=== PATIENT | male | born 1950 | race Caucasian/White ===

== ENCOUNTER 2016-11-10 16:36 | Inpatient (IN) | payer MEDICARE, OTHER ==
[~2016-11-10] VITALS: Ht 177.8 cm; Wt 69.1 kg
[~2016-11-10 16:36] MED LIST: ACET-1757 PO; AMIO200T42 PO; ASPI-496 PO; CARV-39 PO; CEFD300C2 PO; CLON0.1T PO; GABA300C10 PO; HYDR25TA6 PO; LEVO750T26 PO; LISI-170 PO; PRED10TA14 PO
[2016-11-10] MEDS ORDERED: METOPROLOL 1 MG/ML, 5ML IVPush ONE (16:49)
[2016-11-10] MEDS ORDERED: ACETAMINOPHEN 500 MG TABLET ONE (16:56)
[2016-11-10] MEDS ORDERED: METOPROLOL 1 MG/ML, 5ML ONE (16:56)
[2016-11-10] MEDS ORDERED: AMIODARONE 150 MG in DEXTROSE 5% 100 ML IV ONE (17:00)
[2016-11-10] MEDS ORDERED: PIPERACILLIN/TAZO/PMX 3.375GM 50 ML IVPB ONE (17:00)
[2016-11-10] MEDS ORDERED: SODIUM CHLORIDE 0.9% 1,000ML IVBOLUS ONE (17:00)
[2016-11-10] MEDS ORDERED: FILTER 0.22 MICRON FOR AMIODARONE IV PRN (17:00)
[2016-11-10] MEDS ORDERED: AMIODARONE 900 MG in DEXTROSE 5% 482 ML IV PRN ×2 (17:00→18:00)
[2016-11-10] MEDS ORDERED: SODIUM CHLORIDE FLUSH 10ML SYR IVF ONE (17:00)
[2016-11-10] MEDS ORDERED: ACETAMINOPHEN 325 MG TABLET PO ONE (17:00)
[2016-11-10] MEDS ORDERED: ONDANSETRON 2MG/ML, 2ML IVP PRN (17:30)
[2016-11-10] MEDS ORDERED: MORPHINE SULFATE 4 MG/ML, 1ML IVPush PRN (17:30)
[2016-11-10] MEDS ORDERED: LABETALOL 5MG/ML, 20ML IV PRN (17:30)
[2016-11-10] MEDS ORDERED: POLYETHYLENE GLYCOL 17 GM PACKET PO PRN (17:30)
[2016-11-10] MEDS ORDERED: ACETAMINOPHEN 325 MG TABLET PO PRN (17:30)
[2016-11-10] MEDS ORDERED: VANCOMYCIN PER PHARMACY MC PRN (17:30)
[2016-11-10] MEDS ORDERED: PIPERACILLIN/TAZO/PMX 3.375GM 50 ML ONE (17:40)
[2016-11-10 17:51] LABS: HEMOGLOBIN 16.8 g/dL (13.7-18.0)
[2016-11-10 17:59] LABS: BLOOD UREA NITROGEN 14 mg/dL (7-18)
[2016-11-10] MEDS ORDERED: FILTER 0.22 MICRON IV PRN (18:00)
[2016-11-10] MEDS ORDERED: AMIODARONE 150 MG in DEXTROSE 5% 100 ML IVPB ONE (18:00)
[2016-11-10] MEDS ORDERED: TAMSULOSIN 0.4 MG CAP.ER.24H PO ONE (18:00)
[2016-11-10 18:02] LABS: ASPARTATE AMINO TRANSFERASE 84 U/L (15-37)
[2016-11-10 18:15] LABS: IS PT STATUS REG ER OR PRE ER? YES
[2016-11-10 18:31] LABS: ABG COLLECTION SITE RIGHT RADIAL; COLLATERAL CIRCULATION TESTING NORMAL
[2016-11-10] MEDS ORDERED: PHARMACOKINETIC MONITORING MC PRN (19:30)
[2016-11-10] MEDS ORDERED: PHARMACOKINETIC CONSULTATION MC ONE (19:30)
[2016-11-10] MEDS ORDERED: VANCOMYCIN PMX 1GM/200ML 200 ML IV ONE (20:30)
[2016-11-10] MEDS: SODIUM CHLORIDE FLUSH 10ML SYR IVF SCH (20:34)
[2016-11-10] MEDS: SODIUM CHLORIDE 0.9% 1,000 ML IV SCH (20:34)
[2016-11-10] MEDS: ALBUTEROL/IPRATROPIUM 2.5MG/0.5MG, 3 ML NPPB PRN (20:36)
[2016-11-10] MEDS: GABAPENTIN 400 MG CAPSULE PO SCH (21:46)
[2016-11-10] MEDS: PIPERACILLIN/TAZO/PMX 4.5GM 100 ML IV SCH (23:36)
[2016-11-11 00:20] LABS: IS PT STATUS REG ER OR PRE ER? NO
[2016-11-11] MEDS: ALBUTEROL/IPRATROPIUM 2.5MG/0.5MG, 3 ML NPPB PRN ×2 (00:59→03:49)
[2016-11-11 04:44] LABS: HEMOGLOBIN 15.5 g/dL (13.7-18.0)
[2016-11-11 04:54] LABS: BLOOD UREA NITROGEN 16 mg/dL (7-18)
[2016-11-11 04:58] LABS: ASPARTATE AMINO TRANSFERASE 46 U/L (15-37)
[2016-11-11] MEDS: PIPERACILLIN/TAZO/PMX 4.5GM 100 ML IV SCH ×4 (05:14→23:45)
[2016-11-11] MEDS: LEVOTHYROXINE 50 MCG TABLET PO SCH (05:14)
[2016-11-11] MEDS: ASPIRIN 325 MG TABLET EC PO SCH (05:14)
[2016-11-11] MEDS: METOPROLOL 1 MG/ML, 5ML IVPush SCH ×3 (05:15→19:38)
[2016-11-11] MEDS: SODIUM CHLORIDE 0.9% 1,000 ML IV SCH ×2 (06:48→15:27)
[2016-11-11] MEDS: ALBUTEROL/IPRATROPIUM 2.5MG/0.5MG, 3 ML NPPB SCH ×4 (07:00→20:22)
[2016-11-11 07:07] LABS: IS PT STATUS REG ER OR PRE ER? NO
[2016-11-11] MEDS ORDERED: PANTOPRAZOLE 40 MG IV IVP SCH (07:30)
[2016-11-11] MEDS ORDERED: AMIODARONE 150 MG in DEXTROSE 5% 100 ML IV ONE (07:30)
[2016-11-11] MEDS: SENNA/DOCUSATE TABLET PO SCH (09:00)
[2016-11-11] MEDS: SODIUM CHLORIDE FLUSH 10ML SYR IVF SCH ×2 (09:51→20:56)
[2016-11-11] MEDS: GABAPENTIN 400 MG CAPSULE PO SCH ×3 (09:51→21:07)
[2016-11-11] MEDS ORDERED: DIGOXIN 0.25 MG/ML, 2ML IVPush ONE ×2 (10:30→21:00)
[2016-11-11 13:11] LABS: RAPID INFLUENZA A Negative (Negative); RAPID INFLUENZA B Negative (Negative)
[2016-11-11] MEDS: VANCOMYCIN 1,200 MG in SODIUM CHLORIDE 0.9% 250 ML IV SCH (17:29)
[2016-11-11] MEDS ORDERED: DIGOXIN 0.25 MG/ML, 2ML ONE (20:52)
[2016-11-11] MEDS ORDERED: AMIODARONE 150 MG in DEXTROSE 5% 100 ML IV STA (22:04)
[2016-11-11 22:08] LABS: PATH.CAST-FLAG NOT PRESENT; SPERM-FLAG NOT PRESENT; SRC-FLAG NOT PRESENT; XTAL-FLAG NOT PRESENT; YLC-FLAG NOT PRESENT
[2016-11-11] MEDS ORDERED: FUROSEMIDE 40 MG/4 ML ONE (22:59)
[2016-11-11] MEDS ORDERED: FUROSEMIDE 40 MG/4 ML IV ONE (23:00)
[2016-11-12] MEDS ORDERED: DILTIAZEM 5 MG/ML, 5ML IVPush ONE
[2016-11-12] MEDS: DILTIAZEM 125 MG in SODIUM CHLORIDE 0.9% 100 ML IV PRN ×2 (01:04→01:19)
[2016-11-12] MEDS: OXYcodone IR 5MG TABLET PO PRN (01:28)
[2016-11-12] MEDS ORDERED: DIGOXIN 0.25 MG/ML, 2ML IVPush ONE (03:00)
[2016-11-12] MEDS: PIPERACILLIN/TAZO/PMX 4.5GM 100 ML IV SCH ×2 (04:56→11:03)
[2016-11-12 05:01] LABS: HEMOGLOBIN 14.1 g/dL (13.7-18.0)
[2016-11-12 05:12] LABS: BLOOD UREA NITROGEN 9 mg/dL (7-18)
[2016-11-12] MEDS: LEVOTHYROXINE 50 MCG TABLET PO SCH (05:53)
[2016-11-12] MEDS: ASPIRIN 325 MG TABLET EC PO SCH (05:53)
[2016-11-12] MEDS: ALBUTEROL/IPRATROPIUM 2.5MG/0.5MG, 3 ML NPPB SCH ×3 (07:00→14:31)
[2016-11-12] MEDS ORDERED: POTASSIUM CHLORIDE 20 MEQ TAB.ER.PRT PO ONE (07:30)
[2016-11-12] MEDS: SODIUM CHLORIDE FLUSH 10ML SYR IVF SCH ×2 (08:29→20:55)
[2016-11-12] MEDS: GABAPENTIN 400 MG CAPSULE PO SCH ×3 (08:29→20:55)
[2016-11-12] MEDS: ASPIRIN 81 MG TABLET EC PO SCH (08:29)
[2016-11-12] MEDS ORDERED: DILTIAZEM 125 MG in SODIUM CHLORIDE 0.9% 100 ML IV SCH (08:30)
[2016-11-12] MEDS: SENNA/DOCUSATE TABLET PO SCH (08:31)
[2016-11-12] MEDS ORDERED: DILTIAZEM 60 MG CAP.ER.12H PO SCH (09:00)
[2016-11-12] MEDS ORDERED: DILTIAZEM 5 MG/ML, 5ML IVPush PRN (09:30)
[2016-11-12] MEDS: CARVEDILOL 25 MG TABLET PO SCH ×2 (09:41→20:55)
[2016-11-12] MEDS: AMIODARONE 200 MG TABLET PO SCH (09:42)
[2016-11-12] MEDS: VANCOMYCIN 1,200 MG in SODIUM CHLORIDE 0.9% 250 ML IV SCH (12:44)
[2016-11-12 16:30] VITALS: BP 115/78
[2016-11-12] MEDS: LEVOFLOXACIN/PMX 750MG/150ML 150 ML IV SCH (17:50)
[2016-11-12 19:00] VITALS: BP 126/71
[2016-11-13 01:35] VITALS: BP 131/82
[2016-11-13] MEDS: LEVOTHYROXINE 50 MCG TABLET PO SCH (06:11)
[2016-11-13 06:36] VITALS: BP 151/85
[2016-11-13] MEDS: ALBUTEROL/IPRATROPIUM 2.5MG/0.5MG, 3 ML NPPB SCH ×4 (07:00→19:38)
[2016-11-13] MEDS: SENNA/DOCUSATE TABLET PO SCH (09:00)
[2016-11-13] MEDS: CARVEDILOL 25 MG TABLET PO SCH ×2 (09:04→20:58)
[2016-11-13] MEDS: ASPIRIN 81 MG TABLET EC PO SCH (09:04)
[2016-11-13] MEDS: GABAPENTIN 400 MG CAPSULE PO SCH ×3 (09:04→20:58)
[2016-11-13] MEDS: AMIODARONE 200 MG TABLET PO SCH (09:04)
[2016-11-13] MEDS: SODIUM CHLORIDE FLUSH 10ML SYR IVF SCH ×2 (09:05→21:02)
[2016-11-13 09:15] LABS: HEMOGLOBIN 15.3 g/dL (13.7-18.0)
[2016-11-13 09:24] LABS: BLOOD UREA NITROGEN 11 mg/dL (7-18)
[2016-11-13 14:29] VITALS: BP 123/77
[2016-11-13] MEDS: OXYcodone IR 5MG TABLET PO PRN (16:02)
[2016-11-13] MEDS: LEVOFLOXACIN/PMX 750MG/150ML 150 ML IV SCH (17:35)
[2016-11-13] MEDS ORDERED: WARFARIN 5 MG TABLET PO-COUM ONE (18:00)
[2016-11-13 18:31] VITALS: BP 160/85
[2016-11-14 01:12] VITALS: BP 121/70
[2016-11-14] MEDS: LEVOTHYROXINE 50 MCG TABLET PO SCH (06:07)
[2016-11-14 06:45] VITALS: BP 160/93
[2016-11-14] MEDS: ALBUTEROL/IPRATROPIUM 2.5MG/0.5MG, 3 ML NPPB SCH ×4 (07:20→21:22)
[2016-11-14] MEDS: SENNA/DOCUSATE TABLET PO SCH (09:00)
[2016-11-14] MEDS: ASPIRIN 81 MG TABLET EC PO SCH (09:02)
[2016-11-14] MEDS: SODIUM CHLORIDE FLUSH 10ML SYR IVF SCH ×2 (09:02→21:13)
[2016-11-14] MEDS: GABAPENTIN 400 MG CAPSULE PO SCH ×3 (09:02→21:12)
[2016-11-14] MEDS: AMIODARONE 200 MG TABLET PO SCH (09:03)
[2016-11-14] MEDS: CARVEDILOL 25 MG TABLET PO SCH ×2 (09:03→21:12)
[2016-11-14 12:51] VITALS: BP 145/96
[2016-11-14] MEDS: LEVOFLOXACIN/PMX 750MG/150ML 150 ML IV SCH (17:03)
[2016-11-14] MEDS ORDERED: WARFARIN 3 MG TABLET PO-COUM ONE (18:00)
[2016-11-14 18:31] VITALS: BP 147/88
[2016-11-15 01:33] VITALS: BP 166/89
[2016-11-15 03:59] VITALS: BP 155/87
[2016-11-15] MEDS: LEVOTHYROXINE 50 MCG TABLET PO SCH (05:45)
[2016-11-15 07:00] VITALS: BP 133/86
[2016-11-15] MEDS: ALBUTEROL/IPRATROPIUM 2.5MG/0.5MG, 3 ML NPPB SCH ×4 (08:00→19:36)
[2016-11-15] MEDS: SODIUM CHLORIDE FLUSH 10ML SYR IVF SCH ×2 (09:00→20:51)
[2016-11-15] MEDS: SENNA/DOCUSATE TABLET PO SCH (09:46)
[2016-11-15] MEDS: GABAPENTIN 400 MG CAPSULE PO SCH ×3 (09:46→20:51)
[2016-11-15] MEDS: CARVEDILOL 25 MG TABLET PO SCH ×2 (09:47→20:51)
[2016-11-15] MEDS: ASPIRIN 81 MG TABLET EC PO SCH (09:47)
[2016-11-15] MEDS: AMIODARONE 200 MG TABLET PO SCH (09:47)
[2016-11-15 14:19] VITALS: BP 129/82
[2016-11-15] MEDS ORDERED: WARF6TAB7 PO (16:17)
[2016-11-15] MEDS: LEVOFLOXACIN/PMX 750MG/150ML 150 ML IV SCH (17:54)
[2016-11-15] MEDS ORDERED: WARFARIN 3 MG TABLET PO-COUM ONE (18:00)
[2016-11-15 18:25] VITALS: BP 165/85
[2016-11-16 01:36] VITALS: BP 121/82
[2016-11-16] MEDS: OXYcodone IR 5MG TABLET PO PRN (04:28)
[2016-11-16] MEDS: LEVOTHYROXINE 50 MCG TABLET PO SCH (04:28)
[2016-11-16 07:03] VITALS: BP 151/106
[2016-11-16] MEDS: ALBUTEROL/IPRATROPIUM 2.5MG/0.5MG, 3 ML NPPB SCH ×3 (07:20→14:30)
[2016-11-16] MEDS: SODIUM CHLORIDE FLUSH 10ML SYR IVF SCH (09:00)
[2016-11-16] MEDS: SENNA/DOCUSATE TABLET PO SCH (10:04)
[2016-11-16] MEDS: AMIODARONE 200 MG TABLET PO SCH (10:04)
[2016-11-16] MEDS: CARVEDILOL 25 MG TABLET PO SCH (10:04)
[2016-11-16] MEDS: GABAPENTIN 400 MG CAPSULE PO SCH (10:04)
[2016-11-16] MEDS: ASPIRIN 81 MG TABLET EC PO SCH (10:04)
[2016-11-16] MEDS ORDERED: DIGO250T PO (11:54)
[2016-11-16] MEDS ORDERED: DIGOXIN 0.25 MG/ML, 2ML IVPush ONE (12:00)
[2016-11-16] MEDS ORDERED: WARF5TAB7 PO (15:27)
[2016-11-16] MEDS ORDERED: WARFARIN 5 MG TABLET PO-COUM ONE (18:00)
== END 2016-11-16 16:05 | DRG 871 ==
LOC: ED 17:29 → EDIP 17:30 → ED 18:13 → CCU 18:39 → ICU 11-12 15:58 → 5SO 11-12 22:56
PROVIDERS: ADMIT Internal Medicine; ATTEND Internal Medicine
DX: A41.9 Sepsis, unspecified organism (principal); J96.20 Acute and chronic respiratory failure, unspecified whether with hypoxia or hypercapnia; J44.1 Chronic obstructive pulmonary disease with (acute) exacerbation; J44.0 Chronic obstructive pulmonary disease with (acute) lower respiratory infection; I48.91 Unspecified atrial fibrillation; E03.9 Hypothyroidism, unspecified; E55.9 Vitamin D deficiency, unspecified; E78.00 Pure hypercholesterolemia, unspecified; I48.2 Chronic atrial fibrillation; N40.0 Benign prostatic hyperplasia without lower urinary tract symptoms; E78.5 Hyperlipidemia, unspecified; G62.9 Polyneuropathy, unspecified; I10 Essential (primary) hypertension; I25.10 Atherosclerotic heart disease of native coronary artery without angina pectoris; I73.9 Peripheral vascular disease, unspecified; Z79.01 Long term (current) use of anticoagulants; Z79.82 Long term (current) use of aspirin; Z82.3 Family history of stroke; Z82.49 Family history of ischemic heart disease and other diseases of the circulatory system; Z99.81 Dependence on supplemental oxygen; Z87.01 Personal history of pneumonia (recurrent); Z86.718 Personal history of other venous thrombosis and embolism; Z87.891 Personal history of nicotine dependence; Z95.2 Presence of prosthetic heart valve; Z95.3 Presence of xenogenic heart valve
CPT/HCPCS: 36415; 36600; 71010; 80048; 80053; 80162; 81001; 82803; 83605; 83735; 84145; 84439; 84443; 84484; 85025; 85610; 87040; 87070; 87077; 87081; 87205; 87324; 87400; 93005; 93970; 94640; 96365; 96368; 96375; J1940; J1956; J2405; J2543; J3370; J7620; C9113; J0282; J1160; J7030; J7050; J7060

== ENCOUNTER 2017-01-22 13:26 | Inpatient (IN) | payer MEDICARE, OTHER ==
[~2017-01-22] VITALS: Ht 177.8 cm; Wt 55.5 kg
[~2017-01-22 13:26] MED LIST changes: -CEFD300C2 PO; +CEFD300C37 PO; +DIGO250T PO; +ETOMIDATE 40 MG/20 ML ONE; +PROPOFOL 10 MG/ML, 20ML ONE; +SUCCINYLCHOLINE 20 MG/ML, 10ML ONE; +WARF5TAB7 PO; +WARF6TAB7 PO
[2017-01-22] MEDS ORDERED: DILTIAZEM 5 MG/ML, 5ML ONE (13:31)
[2017-01-22] MEDS ORDERED: DILTIAZEM 125 MG in DEXTROSE 5% 100 ML IV SCH (13:39)
[2017-01-22] MEDS ORDERED: PROPOFOL 100 ML IV PRN (13:39)
[2017-01-22] MEDS ORDERED: methylPREDNISolone SOD SUCC 125 MG/2 ML ONE (13:47)
[2017-01-22] MEDS ORDERED: PROPOFOL 100 ML IV ONE (13:47)
[2017-01-22] MEDS ORDERED: DILTIAZEM 5 MG/ML, 5ML IV ONE (14:00)
[2017-01-22] MEDS ORDERED: SUCCINYLCHOLINE 20 MG/ML, 10ML IVPush ONE (14:00)
[2017-01-22] MEDS ORDERED: methylPREDNISolone SOD SUCC 125 MG/2 ML IVP ONE (14:00)
[2017-01-22] MEDS ORDERED: SODIUM CHLORIDE FLUSH 10ML SYR IVF ONE (14:00)
[2017-01-22] MEDS ORDERED: ETOMIDATE 40 MG/20 ML IVPush ONE (14:00)
[2017-01-22 14:25] LABS: ASPARTATE AMINO TRANSFERASE 26 U/L (15-37); BLOOD UREA NITROGEN 13 mg/dL (7-18)
[2017-01-22 14:28] LABS: ABG COLLECTION SITE RIGHT RADIAL; COLLATERAL CIRCULATION TESTING NORMAL
[2017-01-22] MEDS ORDERED: LEVOFLOXACIN/PMX 750MG/150ML 150 ML IVPB ONE (14:30)
[2017-01-22] MEDS ORDERED: AMIODARONE 900 MG in DEXTROSE 5% 500 ML IV PRN (14:30)
[2017-01-22] MEDS ORDERED: AMIODARONE 150 MG in DEXTROSE 5% 100 ML IV ONE (14:30)
[2017-01-22] MEDS ORDERED: SODIUM CHLORIDE 0.9% 1,000ML IVBOLUS ONE ×3 (14:30→16:30)
[2017-01-22] MEDS ORDERED: SODIUM CHLORIDE 0.9% 1,000 ML IV ONE (14:53)
[2017-01-22] MEDS ORDERED: LEVOFLOXACIN/PMX 750MG/150ML 150 ML ONE (14:59)
[2017-01-22] MEDS ORDERED: FILTER 0.22 MICRON IV ONE (15:00)
[2017-01-22] MEDS ORDERED: SODIUM CHLORIDE FLUSH 10ML SYR IVF PRN (15:00)
[2017-01-22] MEDS ORDERED: POLYETHYLENE GLYCOL 17 GM PACKET PO PRN (16:00)
[2017-01-22] MEDS ORDERED: LABETALOL 5MG/ML, 20ML IVPush PRN (16:00)
[2017-01-22] MEDS ORDERED: FILTER 0.22 MICRON (AMIODARONE) IV PRN (16:00)
[2017-01-22] MEDS ORDERED: ONDANSETRON 2MG/ML, 2ML IVPush PRN (16:00)
[2017-01-22] MEDS ORDERED: LORazepam 2 MG/ML, 1ML IVPush PRN (16:00)
[2017-01-22] MEDS ORDERED: VANCOMYCIN PER PHARMACY MC PRN (16:00)
[2017-01-22 16:10] LABS: IS PT STATUS REG ER OR PRE ER? NO
[2017-01-22] MEDS ORDERED: PHARMACY MAY ADJ FOR RENAL FX MC SCH (16:30)
[2017-01-22] MEDS ORDERED: LIDOCAINE-MPF 1%, 2ML ENDO PRN (16:30)
[2017-01-22 17:36] VITALS: BP 101/58
[2017-01-22] MEDS ORDERED: PHARMACOKINETIC MONITORING MC PRN (18:00)
[2017-01-22] MEDS: ALBUTEROL/IPRATROPIUM 2.5MG/0.5MG, 3 ML INLINE SCH ×3 (18:20→23:00)
[2017-01-22] MEDS: MEROPENEM 1 GM in SODIUM CHLORIDE 0.9% 100 ML IV SCH ×2 (18:37→23:38)
[2017-01-22] MEDS: MIDAZOLAM HCL 25 MG in SODIUM CHLORIDE 0.9% 245 ML IV PRN (19:19)
[2017-01-22] MEDS: morphine SULFATE 10 MG/ML, 1ML IVPush PRN ×2 (19:54→23:38)
[2017-01-22] MEDS: VANCOMYCIN 1,300 MG in SODIUM CHLORIDE 0.9% 250 ML IV SCH (19:54)
[2017-01-22] MEDS: ACETAMINOPHEN 325 MG TABLET PO PRN (20:11)
[2017-01-22] MEDS: FAMOTIDINE 20 MG/2 ML IVPush SCH (20:12)
[2017-01-22] MEDS: methylPREDNISolone SOD SUCC 125 MG/2 ML IVPush SCH (20:12)
[2017-01-22] MEDS: SODIUM CHLORIDE FLUSH 3ML SYRINGE IVF SCH (20:31)
[2017-01-22 23:22] LABS: IS PT STATUS REG ER OR PRE ER? NO
[2017-01-23] MEDS: ALBUTEROL/IPRATROPIUM 2.5MG/0.5MG, 3 ML INLINE SCH ×6 (01:56→22:04)
[2017-01-23] MEDS: MIDAZOLAM HCL 25 MG in SODIUM CHLORIDE 0.9% 245 ML IV PRN ×3 (02:04→19:22)
[2017-01-23] MEDS: methylPREDNISolone SOD SUCC 125 MG/2 ML IVPush SCH ×4 (02:05→21:07)
[2017-01-23] MEDS: morphine SULFATE 10 MG/ML, 1ML IVPush PRN ×3 (02:38→21:07)
[2017-01-23 04:26] LABS: ABG COLLECTION SITE RIGHT RADIAL; COLLATERAL CIRCULATION TESTING NORMAL
[2017-01-23 04:50] LABS: ASPARTATE AMINO TRANSFERASE 24 U/L (15-37); BLOOD UREA NITROGEN 13 mg/dL (7-18)
[2017-01-23] MEDS: MEROPENEM 1 GM in SODIUM CHLORIDE 0.9% 100 ML IV SCH ×2 (09:30→16:54)
[2017-01-23] MEDS: SODIUM CHLORIDE FLUSH 3ML SYRINGE IVF SCH ×2 (09:31→21:07)
[2017-01-23] MEDS: FAMOTIDINE 20 MG/2 ML IVPush SCH ×2 (09:31→21:07)
[2017-01-23] MEDS: SENNA/DOCUSATE TABLET PO SCH (09:33)
[2017-01-23] MEDS: AMIODARONE 900 MG in DEXTROSE 5% 482 ML IV PRN (14:18)
[2017-01-23] MEDS: VANCOMYCIN 1,300 MG in SODIUM CHLORIDE 0.9% 250 ML IV SCH (15:02)
[2017-01-23] MEDS ORDERED: WARFARIN 2 MG TABLET PO-COUM ONE (18:00)
[2017-01-23 19:18] LABS: IS PT STATUS REG ER OR PRE ER? NO
[2017-01-23] MEDS: SODIUM CHLORIDE 0.9% 1,000 ML IV SCH (19:22)
[2017-01-24] MEDS: MIDAZOLAM HCL 25 MG in SODIUM CHLORIDE 0.9% 245 ML IV PRN ×3 (00:45→11:10)
[2017-01-24] MEDS: MEROPENEM 1 GM in SODIUM CHLORIDE 0.9% 100 ML IV SCH ×3 (00:45→15:47)
[2017-01-24] MEDS: ALBUTEROL/IPRATROPIUM 2.5MG/0.5MG, 3 ML INLINE SCH ×6 (02:05→22:31)
[2017-01-24] MEDS: methylPREDNISolone SOD SUCC 125 MG/2 ML IVPush SCH ×4 (02:28→20:03)
[2017-01-24] MEDS: SODIUM CHLORIDE 0.9% 1,000 ML IV SCH ×3 (02:28→16:28)
[2017-01-24 04:22] LABS: ABG COLLECTION SITE RIGHT RADIAL; COLLATERAL CIRCULATION TESTING NORMAL
[2017-01-24] MEDS: SENNA/DOCUSATE TABLET PO SCH (08:16)
[2017-01-24] MEDS: FAMOTIDINE 20 MG/2 ML IVPush SCH ×2 (08:16→20:03)
[2017-01-24] MEDS: SODIUM CHLORIDE FLUSH 3ML SYRINGE IVF SCH ×2 (08:24→20:03)
[2017-01-24] MEDS: VANCOMYCIN 1,300 MG in SODIUM CHLORIDE 0.9% 250 ML IV SCH ×2 (09:17→22:44)
[2017-01-24 10:12] LABS: BLOOD UREA NITROGEN 13 mg/dL (7-18)
[2017-01-24] MEDS ORDERED: MORPHINE SULFATE 4 MG/ML, 1ML ONE ×2 (11:07→17:12)
[2017-01-24] MEDS: morphine SULFATE 10 MG/ML, 1ML IVPush PRN ×3 (11:10→20:04)
[2017-01-24] MEDS: LABETALOL 5MG/ML, 20ML IVPush PRN ×2 (11:26→16:27)
[2017-01-24] MEDS: MIDAZOLAM HCL 50 MG in SODIUM CHLORIDE 0.9% 240 ML IV PRN ×2 (13:58→18:31)
[2017-01-24] MEDS ORDERED: WARFARIN 1 MG TABLET PO-COUM SCH (18:00)
[2017-01-24] MEDS: AMIODARONE 900 MG in DEXTROSE 5% 482 ML IV PRN (20:07)
[2017-01-25] MEDS: MEROPENEM 1 GM in SODIUM CHLORIDE 0.9% 100 ML IV SCH ×4 (01:01→23:25)
[2017-01-25] MEDS: methylPREDNISolone SOD SUCC 125 MG/2 ML IVPush SCH ×4 (02:30→21:42)
[2017-01-25] MEDS: ALBUTEROL/IPRATROPIUM 2.5MG/0.5MG, 3 ML INLINE SCH ×6 (03:08→22:43)
[2017-01-25] MEDS: morphine SULFATE 10 MG/ML, 1ML IVPush PRN ×3 (03:42→16:24)
[2017-01-25] MEDS: SODIUM CHLORIDE 0.9% 1,000 ML IV SCH ×4 (03:42→23:25)
[2017-01-25] MEDS: MIDAZOLAM HCL 50 MG in SODIUM CHLORIDE 0.9% 240 ML IV PRN (04:26)
[2017-01-25 04:51] LABS: BLOOD UREA NITROGEN 20 mg/dL (7-18)
[2017-01-25 04:57] LABS: ABG COLLECTION SITE RIGHT RADIAL; COLLATERAL CIRCULATION TESTING NORMAL
[2017-01-25] MEDS: LABETALOL 5MG/ML, 20ML IVPush PRN ×2 (09:10→23:26)
[2017-01-25] MEDS: SENNA/DOCUSATE TABLET PO SCH (09:12)
[2017-01-25] MEDS: FAMOTIDINE 20 MG/2 ML IVPush SCH ×2 (09:13→21:42)
[2017-01-25] MEDS: SODIUM CHLORIDE FLUSH 3ML SYRINGE IVF SCH ×2 (09:37→21:00)
[2017-01-25] MEDS: VANCOMYCIN 1,300 MG in SODIUM CHLORIDE 0.9% 250 ML IV SCH ×2 (10:46→21:43)
[2017-01-25] MEDS: PROPOFOL 100 ML IV PRN ×2 (13:54→21:42)
[2017-01-25] MEDS: SODIUM CHLORIDE FLUSH 10ML SYR IVF SCH (23:22)
[2017-01-25] MEDS: AMIODARONE 900 MG in DEXTROSE 5% 482 ML IV PRN (23:47)
[2017-01-26] MEDS: ALBUTEROL/IPRATROPIUM 2.5MG/0.5MG, 3 ML INLINE SCH ×5 (02:10→22:10)
[2017-01-26] MEDS: methylPREDNISolone SOD SUCC 125 MG/2 ML IVPush SCH ×4 (02:28→20:44)
[2017-01-26 03:20] LABS: ABG COLLECTION SITE LEFT RADIAL; COLLATERAL CIRCULATION TESTING NORMAL
[2017-01-26] MEDS: LABETALOL 5MG/ML, 20ML IVPush PRN ×2 (05:12→23:07)
[2017-01-26] MEDS: morphine SULFATE 10 MG/ML, 1ML IVPush PRN ×4 (05:12→17:51)
[2017-01-26] MEDS: PROPOFOL 100 ML IV PRN ×4 (05:13→23:07)
[2017-01-26] MEDS: MEROPENEM 1 GM in SODIUM CHLORIDE 0.9% 100 ML IV SCH ×3 (08:04→23:58)
[2017-01-26] MEDS: SODIUM CHLORIDE FLUSH 10ML SYR IVF SCH ×3 (08:06→20:44)
[2017-01-26] MEDS: FAMOTIDINE 20 MG/2 ML IVPush SCH ×2 (08:07→20:44)
[2017-01-26] MEDS: SENNA/DOCUSATE TABLET PO SCH (08:07)
[2017-01-26] MEDS ORDERED: METOPROLOL 1 MG/ML, 5ML IVPush PRN (09:00)
[2017-01-26] MEDS: FUROSEMIDE 20 MG/2 ML IV SCH ×2 (09:16→20:44)
[2017-01-26 09:53] LABS: BLOOD UREA NITROGEN 25 mg/dL (7-18)
[2017-01-26] MEDS: METOPROLOL TARTRATE 25 MG TABLET PO SCH ×2 (10:36→17:35)
[2017-01-26] MEDS: VANCOMYCIN 1,300 MG in SODIUM CHLORIDE 0.9% 250 ML IV SCH (10:36)
[2017-01-26] MEDS ORDERED: WARFARIN 2 MG TABLET PO-COUM ONE (12:00)
[2017-01-26] MEDS ORDERED: METOPROLOL TARTRATE 25 MG TABLET NG SCH (16:00)
[2017-01-26] MEDS: SODIUM CHLORIDE 0.9% 1,000 ML IV SCH (20:45)
[2017-01-26] MEDS: OXYcodone IR 5MG TABLET PO PRN (23:07)
[2017-01-27] MEDS: ALBUTEROL/IPRATROPIUM 2.5MG/0.5MG, 3 ML INLINE SCH ×6 (02:00→22:05)
[2017-01-27] MEDS: METOPROLOL TARTRATE 25 MG TABLET PO SCH ×3 (02:48→17:00)
[2017-01-27] MEDS: SODIUM CHLORIDE FLUSH 10ML SYR IVF SCH ×5 (02:49→21:20)
[2017-01-27] MEDS: methylPREDNISolone SOD SUCC 125 MG/2 ML IVPush SCH ×4 (02:49→21:21)
[2017-01-27] MEDS: morphine SULFATE 10 MG/ML, 1ML IVPush PRN (03:04)
[2017-01-27] MEDS: PROPOFOL 100 ML IV PRN ×3 (03:05→19:55)
[2017-01-27] MEDS: AMIODARONE 900 MG in DEXTROSE 5% 482 ML IV PRN (03:12)
[2017-01-27 04:33] LABS: ABG COLLECTION SITE RIGHT RADIAL; COLLATERAL CIRCULATION TESTING NORMAL
[2017-01-27 06:28] LABS: ASPARTATE AMINO TRANSFERASE 28 U/L (15-37); BLOOD UREA NITROGEN 32 mg/dL (7-18)
[2017-01-27] MEDS ORDERED: VANCOMYCIN 1,300 MG in SODIUM CHLORIDE 0.9% 250 ML IV SCH (09:00)
[2017-01-27] MEDS: MEROPENEM 1 GM in SODIUM CHLORIDE 0.9% 100 ML IV SCH ×2 (09:21→16:59)
[2017-01-27] MEDS: FAMOTIDINE 20 MG/2 ML IVPush SCH ×2 (09:21→21:21)
[2017-01-27] MEDS: LABETALOL 5MG/ML, 20ML IVPush PRN (09:30)
[2017-01-27] MEDS: SENNA/DOCUSATE TABLET PO SCH (09:36)
[2017-01-27] MEDS: FUROSEMIDE 20 MG/2 ML IV SCH ×2 (09:36→21:21)
[2017-01-27] MEDS ORDERED: WARFARIN 3 MG TABLET PO-COUM ONE (18:00)
[2017-01-28] MEDS: MEROPENEM 1 GM in SODIUM CHLORIDE 0.9% 100 ML IV SCH ×3 (00:16→16:49)
[2017-01-28] MEDS: PROPOFOL 100 ML IV PRN ×2 (00:33→05:20)
[2017-01-28] MEDS: METOPROLOL TARTRATE 25 MG TABLET PO SCH ×2 (01:25→08:00)
[2017-01-28] MEDS: ALBUTEROL/IPRATROPIUM 2.5MG/0.5MG, 3 ML INLINE SCH ×2 (02:00→07:01)
[2017-01-28] MEDS: LABETALOL 5MG/ML, 20ML IVPush PRN (02:11)
[2017-01-28] MEDS: methylPREDNISolone SOD SUCC 125 MG/2 ML IVPush SCH ×4 (02:54→20:43)
[2017-01-28] MEDS: morphine SULFATE 10 MG/ML, 1ML IVPush PRN ×2 (02:54→19:22)
[2017-01-28 04:25] LABS: ABG COLLECTION SITE RIGHT RADIAL; COLLATERAL CIRCULATION TESTING NORMAL
[2017-01-28] MEDS: SODIUM CHLORIDE FLUSH 10ML SYR IVF SCH ×4 (04:35→20:43)
[2017-01-28 05:32] LABS: BLOOD UREA NITROGEN 35 mg/dL (7-18)
[2017-01-28] MEDS: FAMOTIDINE 20 MG/2 ML IVPush SCH ×2 (07:59→20:43)
[2017-01-28] MEDS: FUROSEMIDE 20 MG/2 ML IV SCH ×2 (07:59→19:21)
[2017-01-28] MEDS ORDERED: BISACODYL 5 MG EC TABLET PO PRN (08:00)
[2017-01-28] MEDS: SENNA/DOCUSATE TABLET PO SCH (08:00)
[2017-01-28] MEDS ORDERED: DIGOXIN 0.25 MG/ML, 2ML IVPush ONE (08:30)
[2017-01-28] MEDS ORDERED: POTASSIUM CHLORIDE 10% 40 MEQ/30 ML UDC NG ONE (08:30)
[2017-01-28] MEDS: METOPROLOL TARTRATE 50 MG TABLET PO SCH ×2 (09:00→20:44)
[2017-01-28] MEDS ORDERED: METOPROLOL TARTRATE 25 MG TABLET PO ONE (09:30)
[2017-01-28] MEDS: DIGOXIN 0.25 MG/ML, 2ML IVPush SCH ×2 (13:10→16:55)
[2017-01-28] MEDS: BISACODYL 10 MG SUPP PR PRN (14:20)
[2017-01-28] MEDS ORDERED: ALBUTEROL/IPRATROPIUM 2.5MG/0.5MG, 3 ML INLINE SCH (16:00)
[2017-01-28] MEDS ORDERED: hydrALAzine 20 MG/ML, 1ML ONE (16:49)
[2017-01-28] MEDS: hydrALAzine 20 MG/ML, 1ML IV PRN (16:50)
[2017-01-28] MEDS: LISINOPRIL 20 MG TABLET PO SCH ×2 (16:51→20:45)
[2017-01-28] MEDS ORDERED: WARFARIN 2 MG TABLET PO-COUM ONE (18:00)
[2017-01-28] MEDS: SODIUM CHLORIDE 0.9% 1,000 ML IV SCH (19:00)
[2017-01-28] MEDS: ALBUTEROL/IPRATROPIUM 2.5MG/0.5MG, 3 ML NPPB SCH (19:39)
[2017-01-29] MEDS: MEROPENEM 1 GM in SODIUM CHLORIDE 0.9% 100 ML IV SCH ×4 (01:06→22:56)
[2017-01-29] MEDS: methylPREDNISolone SOD SUCC 125 MG/2 ML IVPush SCH ×4 (02:36→21:02)
[2017-01-29] MEDS: morphine SULFATE 10 MG/ML, 1ML IVPush PRN (02:50)
[2017-01-29 03:06] LABS: BLOOD UREA NITROGEN 38 mg/dL (7-18)
[2017-01-29 04:35] LABS: ABG COLLECTION SITE RIGHT RADIAL; COLLATERAL CIRCULATION TESTING NORMAL
[2017-01-29] MEDS: SODIUM CHLORIDE FLUSH 10ML SYR IVF SCH ×3 (05:00→21:05)
[2017-01-29] MEDS: PICC FLUSH PROTOCOL XX SCH ×2 (07:43→16:56)
[2017-01-29] MEDS: ALBUTEROL/IPRATROPIUM 2.5MG/0.5MG, 3 ML NPPB SCH ×3 (07:50→16:10)
[2017-01-29] MEDS: SENNA/DOCUSATE TABLET PO SCH (09:00)
[2017-01-29] MEDS: LISINOPRIL 20 MG TABLET PO SCH ×2 (09:54→21:03)
[2017-01-29] MEDS: METOPROLOL TARTRATE 50 MG TABLET PO SCH ×2 (09:54→21:03)
[2017-01-29] MEDS: FUROSEMIDE 20 MG/2 ML IV SCH ×2 (09:55→21:02)
[2017-01-29] MEDS: POTASSIUM CHLORIDE 20 MEQ PACKET NG SCH ×2 (09:55→21:03)
[2017-01-29] MEDS: FAMOTIDINE 20 MG/2 ML IVPush SCH ×2 (09:55→21:02)
[2017-01-29] MEDS: DIGOXIN 0.25 MG TABLET PO SCH (09:56)
[2017-01-29] MEDS: OXYcodone IR 5MG TABLET PO PRN ×2 (14:29→17:06)
[2017-01-29] MEDS: SODIUM CHLORIDE 0.9% 1,000 ML IV SCH (15:31)
[2017-01-29] MEDS ORDERED: WARFARIN 2 MG TABLET PO-COUM SCH (18:00)
[2017-01-29] MEDS: hydrALAzine 20 MG/ML, 1ML IV PRN (23:04)
[2017-01-30] MEDS: OXYcodone IR 5MG TABLET PO PRN ×2 (00:50→21:10)
[2017-01-30] MEDS: ACETAMINOPHEN 325 MG TABLET PO PRN (00:50)
[2017-01-30] MEDS: methylPREDNISolone SOD SUCC 125 MG/2 ML IVPush SCH ×4 (02:17→21:09)
[2017-01-30 04:34] LABS: ABG COLLECTION SITE RIGHT RADIAL; COLLATERAL CIRCULATION TESTING NORMAL
[2017-01-30] MEDS: SODIUM CHLORIDE FLUSH 10ML SYR IVF SCH ×3 (05:00→21:08)
[2017-01-30 05:36] LABS: BLOOD UREA NITROGEN 41 mg/dL (7-18)
[2017-01-30] MEDS: ALBUTEROL/IPRATROPIUM 2.5MG/0.5MG, 3 ML NPPB SCH (07:00)
[2017-01-30] MEDS: MEROPENEM 1 GM in SODIUM CHLORIDE 0.9% 100 ML IV SCH ×2 (09:02→16:34)
[2017-01-30] MEDS: FAMOTIDINE 20 MG/2 ML IVPush SCH ×2 (09:04→21:09)
[2017-01-30] MEDS: FUROSEMIDE 20 MG/2 ML IV SCH ×2 (09:04→21:08)
[2017-01-30] MEDS: DIGOXIN 0.25 MG TABLET PO SCH (09:05)
[2017-01-30] MEDS: METOPROLOL TARTRATE 50 MG TABLET PO SCH ×2 (09:06→21:09)
[2017-01-30] MEDS: LISINOPRIL 20 MG TABLET PO SCH ×2 (09:06→21:10)
[2017-01-30] MEDS: POTASSIUM CHLORIDE 10% 20 MEQ/15 ML UDC PO SCH ×2 (09:06→21:10)
[2017-01-30] MEDS: hydrALAzine 20 MG/ML, 1ML IV PRN ×2 (09:07→14:35)
[2017-01-30] MEDS: BISACODYL 10 MG SUPP PR PRN (09:56)
[2017-01-30] MEDS ORDERED: ALBUTEROL/IPRATROPIUM 2.5MG/0.5MG, 3 ML NPPB PRN (11:00)
[2017-01-30] MEDS: GABAPENTIN 300 MG CAPSULE PO SCH ×2 (12:47→21:10)
[2017-01-30] MEDS: LEVOTHYROXINE 100 MCG TABLET PO SCH (12:47)
[2017-01-30] MEDS ORDERED: WARFARIN 2 MG TABLET PO-COUM SCH (18:00)
[2017-01-30] MEDS: SODIUM CHLORIDE 0.9% 1,000 ML IV SCH (19:00)
[2017-01-31] MEDS: MEROPENEM 1 GM in SODIUM CHLORIDE 0.9% 100 ML IV SCH ×4 (00:08→23:53)
[2017-01-31 04:13] LABS: ASPARTATE AMINO TRANSFERASE 27 U/L (15-37); BLOOD UREA NITROGEN 42 mg/dL (7-18)
[2017-01-31 04:20] LABS: ABG COLLECTION SITE RIGHT RADIAL; COLLATERAL CIRCULATION TESTING NORMAL
[2017-01-31] MEDS: methylPREDNISolone SOD SUCC 125 MG/2 ML IVPush SCH ×2 (04:42→10:03)
[2017-01-31] MEDS: LEVOTHYROXINE 100 MCG TABLET PO SCH (05:53)
[2017-01-31] MEDS: SODIUM CHLORIDE FLUSH 10ML SYR IVF SCH ×3 (05:53→20:03)
[2017-01-31] MEDS: FUROSEMIDE 20 MG/2 ML IV SCH ×2 (10:03→20:03)
[2017-01-31] MEDS: FAMOTIDINE 20 MG/2 ML IVPush SCH (10:03)
[2017-01-31] MEDS: GABAPENTIN 300 MG CAPSULE PO SCH ×2 (10:04→20:04)
[2017-01-31] MEDS: DIGOXIN 0.25 MG TABLET PO SCH (10:04)
[2017-01-31] MEDS: METOPROLOL TARTRATE 50 MG TABLET PO SCH ×2 (10:04→20:04)
[2017-01-31] MEDS: LISINOPRIL 20 MG TABLET PO SCH ×2 (10:05→20:04)
[2017-01-31] MEDS: POTASSIUM CHLORIDE 10% 20 MEQ/15 ML UDC PO SCH ×2 (10:05→20:04)
[2017-01-31] MEDS: hydrALAzine 20 MG/ML, 1ML IV PRN (12:34)
[2017-01-31] MEDS: methylPREDNISolone SOD SUCC 40 MG/ML IV SCH ×2 (16:24→20:04)
[2017-01-31] MEDS: OXYcodone IR 5MG TABLET PO PRN ×2 (17:45→22:59)
[2017-01-31] MEDS ORDERED: WARFARIN 2 MG TABLET PO-COUM SCH (18:00)
[2017-01-31] MEDS: ACETAMINOPHEN 325 MG TABLET PO PRN (20:07)
[2017-02-01 04:05] LABS: BLOOD UREA NITROGEN 41 mg/dL (7-18)
[2017-02-01] MEDS: methylPREDNISolone SOD SUCC 40 MG/ML IV SCH ×4 (04:40→21:27)
[2017-02-01] MEDS: SODIUM CHLORIDE FLUSH 10ML SYR IVF SCH ×3 (04:41→21:27)
[2017-02-01] MEDS: LEVOTHYROXINE 100 MCG TABLET PO SCH (05:52)
[2017-02-01] MEDS: MEROPENEM 1 GM in SODIUM CHLORIDE 0.9% 100 ML IV SCH ×2 (08:24→16:19)
[2017-02-01] MEDS: LISINOPRIL 20 MG TABLET PO SCH ×2 (08:25→21:27)
[2017-02-01] MEDS: FUROSEMIDE 20 MG/2 ML IV SCH ×2 (08:25→21:27)
[2017-02-01] MEDS: DIGOXIN 0.25 MG TABLET PO SCH (08:25)
[2017-02-01] MEDS: GABAPENTIN 300 MG CAPSULE PO SCH ×2 (08:26→21:25)
[2017-02-01] MEDS: METOPROLOL TARTRATE 50 MG TABLET PO SCH ×2 (08:53→21:25)
[2017-02-01] MEDS: POTASSIUM CHLORIDE 10% 20 MEQ/15 ML UDC PO SCH ×2 (08:53→21:00)
[2017-02-01] MEDS: hydrALAzine 20 MG/ML, 1ML IV PRN (11:02)
[2017-02-01] MEDS ORDERED: WARFARIN 1 MG TABLET PO-COUM SCH (18:00)
[2017-02-01] MEDS: OXYcodone IR 5MG TABLET PO PRN ×2 (22:09→22:38)
[2017-02-02] MEDS: MEROPENEM 1 GM in SODIUM CHLORIDE 0.9% 100 ML IV SCH ×3 (00:50→16:00)
[2017-02-02] MEDS: VANCOMYCIN 50 MG/ML ORAL SUSP PO SCH ×4 (00:50→18:00)
[2017-02-02] MEDS: OXYcodone IR 5MG TABLET PO PRN (02:57)
[2017-02-02] MEDS: methylPREDNISolone SOD SUCC 40 MG/ML IV SCH ×4 (04:17→22:00)
[2017-02-02 04:59] LABS: BLOOD UREA NITROGEN 34 mg/dL (7-18)
[2017-02-02] MEDS: SODIUM CHLORIDE FLUSH 10ML SYR IVF SCH ×3 (05:00→21:00)
[2017-02-02] MEDS: LEVOTHYROXINE 100 MCG TABLET PO SCH (06:00)
[2017-02-02] MEDS: LISINOPRIL 20 MG TABLET PO SCH ×2 (09:00→21:00)
[2017-02-02] MEDS: DIGOXIN 0.25 MG TABLET PO SCH (09:00)
[2017-02-02] MEDS: POTASSIUM CHLORIDE 10% 40 MEQ/30 ML UDC PO SCH ×2 (09:00→21:00)
[2017-02-02] MEDS: FUROSEMIDE 20 MG/2 ML IV SCH ×2 (09:00→21:00)
[2017-02-02] MEDS: METOPROLOL TARTRATE 50 MG TABLET PO SCH ×2 (09:00→21:00)
[2017-02-02] MEDS: GABAPENTIN 300 MG CAPSULE PO SCH ×2 (09:00→21:00)
[2017-02-03] MEDS: OXYcodone IR 5MG TABLET PO PRN ×2 (03:40→18:06)
[2017-02-03] MEDS: methylPREDNISolone SOD SUCC 40 MG/ML IV SCH ×4 (04:00→23:48)
[2017-02-03] MEDS: SODIUM CHLORIDE FLUSH 10ML SYR IVF SCH ×3 (05:00→22:03)
[2017-02-03] MEDS: LEVOTHYROXINE 100 MCG TABLET PO SCH (06:00)
[2017-02-03] MEDS: VANCOMYCIN 50 MG/ML ORAL SUSP PO SCH ×5 (06:00→23:49)
[2017-02-03] MEDS: MEROPENEM 1 GM in SODIUM CHLORIDE 0.9% 100 ML IV SCH ×4 (08:00→23:50)
[2017-02-03] MEDS: DIGOXIN 0.25 MG TABLET PO SCH ×2 (09:00→09:30)
[2017-02-03] MEDS: POTASSIUM CHLORIDE 10% 40 MEQ/30 ML UDC PO SCH ×3 (09:00→21:00)
[2017-02-03] MEDS: GABAPENTIN 300 MG CAPSULE PO SCH ×2 (09:00→22:02)
[2017-02-03] MEDS: FUROSEMIDE 20 MG/2 ML IV SCH ×2 (09:00→22:03)
[2017-02-03] MEDS: LISINOPRIL 20 MG TABLET PO SCH ×2 (09:00→22:02)
[2017-02-03] MEDS: METOPROLOL TARTRATE 50 MG TABLET PO SCH ×2 (09:00→21:00)
[2017-02-03] MEDS ORDERED: CLEVIDIPINE 100 ML IV ONE (11:41)
[2017-02-03] MEDS ORDERED: SODIUM BICARB 8.4%, 50ML SYRINGE ONE (11:50)
[2017-02-03] MEDS ORDERED: HYDROmorphone 2 MG/ML, 1ML ONE (12:08)
[2017-02-03 19:12] VITALS: BP 101/60
[2017-02-03] MEDS: PICC FLUSH PROTOCOL XX SCH (23:11)
[2017-02-04 00:48] VITALS: BP 97/57
[2017-02-04 05:17] LABS: ASPARTATE AMINO TRANSFERASE 38 U/L (15-37); BLOOD UREA NITROGEN 30 mg/dL (7-18)
[2017-02-04] MEDS: VANCOMYCIN 50 MG/ML ORAL SUSP PO SCH ×3 (06:00→18:10)
[2017-02-04 06:41] VITALS: BP 92/54
[2017-02-04] MEDS: methylPREDNISolone SOD SUCC 40 MG/ML IV SCH ×3 (07:02→18:00)
[2017-02-04] MEDS: SODIUM CHLORIDE FLUSH 10ML SYR IVF SCH ×3 (07:02→21:34)
[2017-02-04] MEDS: LEVOTHYROXINE 100 MCG TABLET PO SCH (07:03)
[2017-02-04] MEDS ORDERED: HOLD COUMADIN MC PRN (08:30)
[2017-02-04] MEDS: LISINOPRIL 20 MG TABLET PO SCH ×2 (09:32→21:00)
[2017-02-04] MEDS: MEROPENEM 1 GM in SODIUM CHLORIDE 0.9% 100 ML IV SCH ×2 (09:32→16:00)
[2017-02-04] MEDS: METOPROLOL TARTRATE 50 MG TABLET PO SCH ×2 (09:33→21:00)
[2017-02-04] MEDS: GABAPENTIN 300 MG CAPSULE PO SCH ×2 (09:33→21:33)
[2017-02-04 12:35] VITALS: BP 132/71
[2017-02-04] MEDS: NYSTATIN 500,000 UNITS/5 ML UDC PO SCH ×3 (13:40→21:33)
[2017-02-04] MEDS: maalox/diphenh/lido/sucralfate 5 ML PO PRN (18:10)
[2017-02-04 18:56] VITALS: BP 92/69
[2017-02-04] MEDS: FUROSEMIDE 20 MG/2 ML IV SCH (21:00)
[2017-02-04] MEDS: POTASSIUM CHLORIDE 10% 40 MEQ/30 ML UDC PO SCH (21:00)
[2017-02-04 21:42] VITALS: BP 107/73
[2017-02-04] MEDS: OXYcodone IR 5MG TABLET PO PRN (21:51)
[2017-02-05] MEDS: methylPREDNISolone SOD SUCC 40 MG/ML IV SCH ×4 (00:49→18:17)
[2017-02-05] MEDS: VANCOMYCIN 50 MG/ML ORAL SUSP PO SCH ×4 (00:50→18:15)
[2017-02-05] MEDS: MEROPENEM 1 GM in SODIUM CHLORIDE 0.9% 100 ML IV SCH ×2 (00:50→08:24)
[2017-02-05 01:39] VITALS: BP 110/72
[2017-02-05] MEDS: NYSTATIN 500,000 UNITS/5 ML UDC PO SCH ×4 (05:40→21:27)
[2017-02-05] MEDS: SODIUM CHLORIDE FLUSH 10ML SYR IVF SCH ×3 (05:41→21:26)
[2017-02-05] MEDS: LEVOTHYROXINE 100 MCG TABLET PO SCH (05:41)
[2017-02-05 06:42] VITALS: BP 122/71
[2017-02-05] MEDS: LISINOPRIL 20 MG TABLET PO SCH ×2 (08:26→21:27)
[2017-02-05] MEDS: FUROSEMIDE 20 MG/2 ML IV SCH (08:26)
[2017-02-05] MEDS: METOPROLOL TARTRATE 50 MG TABLET PO SCH ×2 (08:26→21:27)
[2017-02-05] MEDS: POTASSIUM CHLORIDE 10% 40 MEQ/30 ML UDC PO SCH (08:27)
[2017-02-05] MEDS: DIGOXIN 0.25 MG TABLET PO SCH (08:27)
[2017-02-05] MEDS: GABAPENTIN 300 MG CAPSULE PO SCH ×2 (08:27→21:27)
[2017-02-05 12:23] VITALS: BP 96/60
[2017-02-05 15:49] LABS: BLOOD UREA NITROGEN 33 mg/dL (7-18)
[2017-02-05] MEDS ORDERED: WARFARIN 1 MG TABLET PO-COUM ONE (18:00)
[2017-02-05] MEDS: maalox/diphenh/lido/sucralfate 5 ML PO PRN (18:16)
[2017-02-05 19:36] VITALS: BP 113/61
[2017-02-05] MEDS ORDERED: maalox/diphenh/lido/sucralfate 5 ML PO PRN (21:18)
[2017-02-05 21:23] VITALS: BP 112/77
[2017-02-05] MEDS: OXYcodone IR 5MG TABLET PO PRN (21:44)
[2017-02-06] MEDS: VANCOMYCIN 50 MG/ML ORAL SUSP PO SCH ×5 (00:13→23:44)
[2017-02-06 01:56] VITALS: BP_SYST 85; BP_SYST 89; BP_DIAS 53; BP_DIAS 58
[2017-02-06 03:47] VITALS: BP 95/60
[2017-02-06] MEDS: LEVOTHYROXINE 100 MCG TABLET PO SCH (06:00)
[2017-02-06] MEDS: SODIUM CHLORIDE FLUSH 10ML SYR IVF SCH ×3 (06:00→21:51)
[2017-02-06] MEDS: NYSTATIN 500,000 UNITS/5 ML UDC PO SCH ×4 (06:00→21:51)
[2017-02-06 06:31] LABS: BLOOD UREA NITROGEN 28 mg/dL (7-18)
[2017-02-06 08:30] VITALS: BP 105/65
[2017-02-06] MEDS: LISINOPRIL 20 MG TABLET PO SCH ×2 (09:00→21:00)
[2017-02-06] MEDS: OXYcodone IR 5MG TABLET PO PRN ×2 (09:29→17:14)
[2017-02-06] MEDS: DIGOXIN 0.25 MG TABLET PO SCH (09:30)
[2017-02-06] MEDS: METOPROLOL TARTRATE 50 MG TABLET PO SCH ×2 (09:30→21:00)
[2017-02-06] MEDS: GABAPENTIN 300 MG CAPSULE PO SCH ×2 (09:30→21:51)
[2017-02-06] MEDS: FUROSEMIDE 20 MG/2 ML IV SCH (09:31)
[2017-02-06 14:30] VITALS: BP 102/56
[2017-02-06] MEDS ORDERED: WARFARIN 2 MG TABLET PO-COUM ONE (18:00)
[2017-02-06 19:37] VITALS: BP 78/53
[2017-02-06 21:45] VITALS: BP 102/66
[2017-02-06] MEDS ORDERED: CHOLESTYRAMINE 4GM PACKET PO PRN (23:00)
[2017-02-07 01:54] VITALS: BP 100/63
[2017-02-07] MEDS: SODIUM CHLORIDE FLUSH 10ML SYR IVF SCH ×3 (04:28→20:41)
[2017-02-07] MEDS: OXYcodone IR 5MG TABLET PO PRN ×3 (04:28→20:53)
[2017-02-07 04:44] LABS: BLOOD UREA NITROGEN 31 mg/dL (7-18)
[2017-02-07] MEDS: LEVOTHYROXINE 100 MCG TABLET PO SCH (06:35)
[2017-02-07] MEDS: NYSTATIN 500,000 UNITS/5 ML UDC PO SCH ×4 (06:35→20:40)
[2017-02-07] MEDS: VANCOMYCIN 50 MG/ML ORAL SUSP PO SCH ×4 (06:36→23:49)
[2017-02-07 07:50] VITALS: BP 96/57
[2017-02-07] MEDS: CHOLESTYRAMINE 4GM PACKET PO SCH ×3 (08:28→16:00)
[2017-02-07] MEDS: GABAPENTIN 300 MG CAPSULE PO SCH ×2 (08:28→20:40)
[2017-02-07] MEDS: DIGOXIN 0.25 MG TABLET PO SCH (08:28)
[2017-02-07] MEDS: METOPROLOL TARTRATE 50 MG TABLET PO SCH ×2 (08:30→20:41)
[2017-02-07] MEDS: LISINOPRIL 20 MG TABLET PO SCH ×2 (08:31→20:41)
[2017-02-07] MEDS: FUROSEMIDE 20 MG/2 ML IV SCH (11:51)
[2017-02-07] MEDS ORDERED: WARFARIN 1 MG TABLET PO-COUM SCH (18:00)
[2017-02-07 18:41] VITALS: BP 80/44
[2017-02-07 20:41] VITALS: BP 93/63
[2017-02-08 00:52] VITALS: BP 90/59
[2017-02-08] MEDS: SODIUM CHLORIDE FLUSH 10ML SYR IVF SCH ×3 (05:04→20:50)
[2017-02-08] MEDS: NYSTATIN 500,000 UNITS/5 ML UDC PO SCH ×4 (06:00→20:50)
[2017-02-08] MEDS: LEVOTHYROXINE 100 MCG TABLET PO SCH (06:00)
[2017-02-08] MEDS: VANCOMYCIN 50 MG/ML ORAL SUSP PO SCH ×3 (06:00→18:08)
[2017-02-08 06:02] LABS: BLOOD UREA NITROGEN 25 mg/dL (7-18)
[2017-02-08] MEDS: CHOLESTYRAMINE 4GM PACKET PO SCH ×3 (07:00→16:31)
[2017-02-08 07:33] VITALS: BP 93/64
[2017-02-08] MEDS: METOPROLOL TARTRATE 50 MG TABLET PO SCH ×2 (09:00→20:51)
[2017-02-08 09:25] VITALS: BP 98/68
[2017-02-08] MEDS: FUROSEMIDE 20 MG/2 ML IV SCH (09:37)
[2017-02-08] MEDS: DIGOXIN 0.25 MG TABLET PO SCH (09:37)
[2017-02-08] MEDS: LISINOPRIL 20 MG TABLET PO SCH ×2 (09:38→20:51)
[2017-02-08] MEDS: GABAPENTIN 300 MG CAPSULE PO SCH ×2 (09:38→20:50)
[2017-02-08] MEDS ORDERED: REGADENOSON 0.4 MG/5 ML SYRINGE ONE (11:10)
[2017-02-08 13:04] VITALS: BP 97/62
[2017-02-08] MEDS: OXYcodone IR 5MG TABLET PO PRN ×2 (14:34→23:07)
[2017-02-08] MEDS ORDERED: WARFARIN 2 MG TABLET PO-COUM ONE (18:00)
[2017-02-08 19:47] VITALS: BP 103/58
[2017-02-09] VITALS (9 sets, daily range): BP systolic 69–133; BP diastolic 40–73
[2017-02-09] MEDS: VANCOMYCIN 50 MG/ML ORAL SUSP PO SCH ×4 (00:53→18:43)
[2017-02-09] MEDS: LEVOTHYROXINE 100 MCG TABLET PO SCH (05:06)
[2017-02-09] MEDS: NYSTATIN 500,000 UNITS/5 ML UDC PO SCH ×4 (05:06→22:05)
[2017-02-09] MEDS: SODIUM CHLORIDE FLUSH 10ML SYR IVF SCH ×3 (05:06→22:05)
[2017-02-09] MEDS: OXYcodone IR 5MG TABLET PO PRN ×3 (05:06→22:05)
[2017-02-09 05:19] LABS: BLOOD UREA NITROGEN 17 mg/dL (7-18)
[2017-02-09 05:28] LABS: IS PT STATUS REG ER OR PRE ER? NO
[2017-02-09] MEDS: GABAPENTIN 300 MG CAPSULE PO SCH ×2 (10:06→22:04)
[2017-02-09] MEDS: LISINOPRIL 20 MG TABLET PO SCH ×2 (10:06→21:00)
[2017-02-09] MEDS: METOPROLOL TARTRATE 50 MG TABLET PO SCH ×2 (10:06→21:00)
[2017-02-09] MEDS: DIGOXIN 0.25 MG TABLET PO SCH (10:07)
[2017-02-09] MEDS: CHOLESTYRAMINE 4GM PACKET PO SCH ×3 (10:07→16:00)
[2017-02-09] MEDS: FUROSEMIDE 20 MG/2 ML IV SCH (10:09)
[2017-02-09] MEDS: PICC FLUSH PROTOCOL XX SCH (10:25)
[2017-02-09] MEDS ORDERED: SODIUM CHLORIDE 0.9%, 500ML IVBOLUS ONE (12:50)
[2017-02-09 15:31] LABS: ABG COLLECTION SITE RIGHT RADIAL; COLLATERAL CIRCULATION TESTING NORMAL
[2017-02-09] MEDS: NOREPINEPHRINE 4 MG in SODIUM CHLORIDE 0.9% 246 ML IV PRN (16:26)
[2017-02-09] MEDS ORDERED: WARFARIN 1 MG TABLET PO-COUM SCH (18:00)
[2017-02-10] MEDS: VANCOMYCIN 50 MG/ML ORAL SUSP PO SCH ×4 (00:11→16:59)
[2017-02-10] MEDS: NOREPINEPHRINE 4 MG in SODIUM CHLORIDE 0.9% 246 ML IV PRN (02:08)
[2017-02-10] MEDS: SODIUM CHLORIDE FLUSH 10ML SYR IVF SCH ×3 (05:01→21:48)
[2017-02-10] MEDS: LEVOTHYROXINE 100 MCG TABLET PO SCH (05:02)
[2017-02-10] MEDS: NYSTATIN 500,000 UNITS/5 ML UDC PO SCH ×4 (05:02→21:48)
[2017-02-10] MEDS: OXYcodone IR 5MG TABLET PO PRN (05:04)
[2017-02-10] MEDS ORDERED: POTASSIUM CHLORIDE 10% 40 MEQ/30 ML UDC PO ONE (07:30)
[2017-02-10] MEDS: GABAPENTIN 300 MG CAPSULE PO SCH ×2 (08:00→21:48)
[2017-02-10] MEDS: DIGOXIN 0.25 MG TABLET PO SCH (08:00)
[2017-02-10] MEDS: FUROSEMIDE 20 MG/2 ML IV SCH (08:00)
[2017-02-10] MEDS ORDERED: WARFARIN 1 MG TABLET PO-COUM ONE (18:00)
[2017-02-11] MEDS: VANCOMYCIN 50 MG/ML ORAL SUSP PO SCH ×5 (00:46→23:28)
[2017-02-11 05:05] LABS: BLOOD UREA NITROGEN 13 mg/dL (7-18)
[2017-02-11] MEDS: SODIUM CHLORIDE FLUSH 10ML SYR IVF SCH ×3 (06:19→20:29)
[2017-02-11] MEDS: NYSTATIN 500,000 UNITS/5 ML UDC PO SCH ×4 (06:20→20:29)
[2017-02-11] MEDS: LEVOTHYROXINE 100 MCG TABLET PO SCH (06:20)
[2017-02-11] MEDS: GABAPENTIN 300 MG CAPSULE PO SCH ×2 (08:39→20:29)
[2017-02-11] MEDS: DIGOXIN 0.25 MG TABLET PO SCH (08:42)
[2017-02-11] MEDS: ALBUTEROL/IPRATROPIUM 2.5MG/0.5MG, 3 ML NPPB SCH ×4 (12:00→22:00)
[2017-02-11] MEDS: AMIODARONE 200 MG TABLET PO SCH (12:26)
[2017-02-11] MEDS ORDERED: WARFARIN 1 MG TABLET PO-COUM ONE (18:00)
[2017-02-12 03:23] LABS: BLOOD UREA NITROGEN 13 mg/dL (7-18)
[2017-02-12 03:57] LABS: DIFF TOTAL CELLS COUNTED 100 CELL DIFF
[2017-02-12 04:37] LABS: VERIFY COUNTS? YES
[2017-02-12 04:38] LABS: POLYCHROMASIA 1+
[2017-02-12 04:39] LABS: LARGE PLATELETS 1+
[2017-02-12] MEDS: LEVOTHYROXINE 100 MCG TABLET PO SCH (05:30)
[2017-02-12] MEDS: NYSTATIN 500,000 UNITS/5 ML UDC PO SCH ×4 (05:30→20:53)
[2017-02-12] MEDS: VANCOMYCIN 50 MG/ML ORAL SUSP PO SCH ×4 (05:30→23:58)
[2017-02-12] MEDS: SODIUM CHLORIDE FLUSH 10ML SYR IVF SCH ×3 (05:30→20:53)
[2017-02-12] MEDS: ALBUTEROL/IPRATROPIUM 2.5MG/0.5MG, 3 ML NPPB SCH ×4 (06:00→20:00)
[2017-02-12] MEDS: AMIODARONE 200 MG TABLET PO SCH (07:43)
[2017-02-12] MEDS: GABAPENTIN 300 MG CAPSULE PO SCH ×2 (07:43→20:53)
[2017-02-12] MEDS: DIGOXIN 0.25 MG TABLET PO SCH (07:44)
[2017-02-12] MEDS: MIDODRINE 5 MG TABLET PO SCH ×3 (10:08→20:54)
[2017-02-12 17:26] VITALS: BP 110/80
[2017-02-12] MEDS ORDERED: WARFARIN 1 MG TABLET PO-COUM SCH (18:00)
[2017-02-12 20:16] VITALS: BP 113/78
[2017-02-12 21:49] VITALS: BP 132/88
[2017-02-13] VITALS: BP 118/73
[2017-02-13] MEDS: NYSTATIN 500,000 UNITS/5 ML UDC PO SCH ×5 (05:23→21:43)
[2017-02-13] MEDS: SODIUM CHLORIDE FLUSH 10ML SYR IVF SCH ×3 (05:23→21:43)
[2017-02-13] MEDS: LEVOTHYROXINE 100 MCG TABLET PO SCH (06:17)
[2017-02-13] MEDS: ALBUTEROL/IPRATROPIUM 2.5MG/0.5MG, 3 ML NPPB SCH ×4 (07:00→20:20)
[2017-02-13 07:07] LABS: DIFF TOTAL CELLS COUNTED 100 CELL DIFF
[2017-02-13 07:10] LABS: LARGE PLATELETS 1+; POLYCHROMASIA 1+
[2017-02-13 07:20] LABS: VERIFY COUNTS? YES
[2017-02-13] MEDS: VANCOMYCIN 50 MG/ML ORAL SUSP PO SCH ×3 (08:17→18:13)
[2017-02-13] MEDS: AMIODARONE 200 MG TABLET PO SCH (08:18)
[2017-02-13] MEDS: MIDODRINE 5 MG TABLET PO SCH ×3 (08:18→21:43)
[2017-02-13] MEDS: DIGOXIN 0.25 MG TABLET PO SCH (08:18)
[2017-02-13] MEDS: GABAPENTIN 300 MG CAPSULE PO SCH ×2 (08:18→21:43)
[2017-02-13 09:12] VITALS: BP 135/88
[2017-02-13] MEDS ORDERED: SIMETHICONE DROPS 40 MG/0.6 ML BOTTLE PO PRN (10:00)
[2017-02-13] MEDS: SODIUM CHLORIDE NASAL SPRAY 45ML BOTTLE NAS SCH ×2 (10:00→21:43)
[2017-02-13 10:41] LABS: BLOOD UREA NITROGEN 15 mg/dL (7-18)
[2017-02-13 13:28] VITALS: BP 123/70
[2017-02-13] MEDS ORDERED: WARFARIN 1 MG TABLET PO-COUM SCH (18:00)
[2017-02-13 18:55] VITALS: BP 114/75
[2017-02-14 00:43] VITALS: BP 107/70
[2017-02-14] MEDS: VANCOMYCIN 50 MG/ML ORAL SUSP PO SCH ×5 (00:48→23:48)
[2017-02-14] MEDS: NYSTATIN 500,000 UNITS/5 ML UDC PO SCH ×5 (05:45→23:43)
[2017-02-14] MEDS: LEVOTHYROXINE 100 MCG TABLET PO SCH (05:47)
[2017-02-14] MEDS: SODIUM CHLORIDE FLUSH 10ML SYR IVF SCH ×3 (05:48→23:41)
[2017-02-14 06:22] LABS: BLOOD UREA NITROGEN 15 mg/dL (7-18)
[2017-02-14 07:16] VITALS: BP 127/77
[2017-02-14] MEDS: ALBUTEROL/IPRATROPIUM 2.5MG/0.5MG, 3 ML NPPB SCH ×4 (07:41→19:29)
[2017-02-14] MEDS: GABAPENTIN 300 MG CAPSULE PO SCH ×2 (08:30→23:43)
[2017-02-14] MEDS: MIDODRINE 5 MG TABLET PO SCH ×3 (08:30→23:43)
[2017-02-14] MEDS: AMIODARONE 200 MG TABLET PO SCH (08:31)
[2017-02-14] MEDS: SODIUM CHLORIDE NASAL SPRAY 45ML BOTTLE NAS SCH ×2 (08:31→23:41)
[2017-02-14] MEDS: DIGOXIN 0.25 MG TABLET PO SCH (08:31)
[2017-02-14] MEDS ORDERED: POTASSIUM CHLORIDE 20 MEQ TAB.ER.PRT PO SCH (12:00)
[2017-02-14] MEDS ORDERED: morphine SULFATE 10 MG/ML, 1ML IVPush PRN (13:00)
[2017-02-14 13:53] VITALS: BP 114/76
[2017-02-14] MEDS: POTASSIUM CHLORIDE 20 MEQ TAB.ER.PRT PO SCH (17:24)
[2017-02-14] MEDS ORDERED: WARFARIN 2 MG TABLET PO-COUM SCH (18:00)
[2017-02-14 19:45] VITALS: BP 130/89
[2017-02-14] MEDS: LACTOBACILLUS CHEW TABLET PO SCH (23:43)
[2017-02-15 01:41] VITALS: BP 118/61
[2017-02-15] MEDS: LEVOTHYROXINE 100 MCG TABLET PO SCH (05:51)
[2017-02-15] MEDS: SODIUM CHLORIDE FLUSH 10ML SYR IVF SCH ×3 (05:51→20:27)
[2017-02-15] MEDS: VANCOMYCIN 50 MG/ML ORAL SUSP PO SCH ×3 (05:51→17:34)
[2017-02-15] MEDS: NYSTATIN 500,000 UNITS/5 ML UDC PO SCH ×4 (05:51→20:26)
[2017-02-15 06:25] LABS: ASPARTATE AMINO TRANSFERASE 20 U/L (15-37); BLOOD UREA NITROGEN 12 mg/dL (7-18)
[2017-02-15] MEDS: ALBUTEROL/IPRATROPIUM 2.5MG/0.5MG, 3 ML NPPB SCH ×4 (07:00→19:54)
[2017-02-15 07:46] VITALS: BP 123/68
[2017-02-15] MEDS: LACTOBACILLUS CHEW TABLET PO SCH ×2 (10:03→20:27)
[2017-02-15] MEDS: DIGOXIN 0.25 MG TABLET PO SCH (10:04)
[2017-02-15] MEDS: AMIODARONE 200 MG TABLET PO SCH (10:04)
[2017-02-15] MEDS: SODIUM CHLORIDE NASAL SPRAY 45ML BOTTLE NAS SCH ×2 (10:04→20:27)
[2017-02-15] MEDS: POTASSIUM CHLORIDE 20 MEQ TAB.ER.PRT PO SCH ×2 (10:04→13:21)
[2017-02-15] MEDS: GABAPENTIN 300 MG CAPSULE PO SCH ×2 (10:05→20:27)
[2017-02-15] MEDS: MIDODRINE 5 MG TABLET PO SCH ×3 (10:05→20:27)
[2017-02-15 13:01] VITALS: BP 108/69
[2017-02-15] MEDS ORDERED: WARFARIN 1 MG TABLET PO-COUM SCH (18:00)
[2017-02-15 18:28] VITALS: BP 102/64
[2017-02-16] MEDS: VANCOMYCIN 50 MG/ML ORAL SUSP PO SCH ×5 (00:19→23:44)
[2017-02-16 01:44] VITALS: BP 118/78
[2017-02-16] MEDS: LEVOTHYROXINE 100 MCG TABLET PO SCH (05:21)
[2017-02-16] MEDS: NYSTATIN 500,000 UNITS/5 ML UDC PO SCH ×4 (05:22→20:25)
[2017-02-16] MEDS: SODIUM CHLORIDE FLUSH 10ML SYR IVF SCH ×3 (05:22→20:25)
[2017-02-16 06:04] LABS: BLOOD UREA NITROGEN 14 mg/dL (7-18)
[2017-02-16 07:26] VITALS: BP 104/59
[2017-02-16] MEDS: MIDODRINE 5 MG TABLET PO SCH ×3 (08:51→20:25)
[2017-02-16] MEDS: LACTOBACILLUS CHEW TABLET PO SCH ×2 (08:51→20:25)
[2017-02-16] MEDS: AMIODARONE 200 MG TABLET PO SCH (08:52)
[2017-02-16] MEDS: DIGOXIN 0.25 MG TABLET PO SCH (08:52)
[2017-02-16] MEDS: GABAPENTIN 300 MG CAPSULE PO SCH ×2 (08:52→20:25)
[2017-02-16] MEDS: SODIUM CHLORIDE NASAL SPRAY 45ML BOTTLE NAS SCH ×2 (08:52→20:25)
[2017-02-16] MEDS: ALBUTEROL/IPRATROPIUM 2.5MG/0.5MG, 3 ML NPPB SCH ×4 (09:55→20:00)
[2017-02-16 13:22] VITALS: BP 108/62
[2017-02-16] MEDS ORDERED: WARFARIN 3 MG TABLET PO-COUM ONE (18:00)
[2017-02-16] MEDS: OXYcodone IR 5MG TABLET PO PRN (18:38)
[2017-02-16 19:51] VITALS: BP 113/72
[2017-02-17] MEDS: SODIUM CHLORIDE FLUSH 10ML SYR IVF SCH ×3 (05:47→21:01)
[2017-02-17] MEDS: VANCOMYCIN 50 MG/ML ORAL SUSP PO SCH ×3 (05:47→18:11)
[2017-02-17] MEDS: NYSTATIN 500,000 UNITS/5 ML UDC PO SCH ×4 (05:47→21:01)
[2017-02-17] MEDS: LEVOTHYROXINE 100 MCG TABLET PO SCH (05:48)
[2017-02-17 06:32] LABS: BLOOD UREA NITROGEN 13 mg/dL (7-18)
[2017-02-17 07:33] VITALS: BP 106/68
[2017-02-17] MEDS: ALBUTEROL/IPRATROPIUM 2.5MG/0.5MG, 3 ML NPPB SCH ×4 (08:45→20:00)
[2017-02-17] MEDS: GABAPENTIN 300 MG CAPSULE PO SCH ×2 (09:19→21:01)
[2017-02-17] MEDS: MIDODRINE 5 MG TABLET PO SCH ×3 (09:19→21:01)
[2017-02-17] MEDS: MEGESTROL ORAL.SUSP 40 MG/ML PO SCH (09:19)
[2017-02-17] MEDS: DIGOXIN 0.25 MG TABLET PO SCH (09:20)
[2017-02-17] MEDS: AMIODARONE 200 MG TABLET PO SCH (09:20)
[2017-02-17] MEDS: LACTOBACILLUS CHEW TABLET PO SCH ×2 (09:20→21:01)
[2017-02-17] MEDS: SODIUM CHLORIDE NASAL SPRAY 45ML BOTTLE NAS SCH ×2 (09:22→21:01)
[2017-02-17] MEDS: OXYcodone IR 5MG TABLET PO PRN ×2 (12:23→22:34)
[2017-02-17 13:53] VITALS: BP 120/83
[2017-02-17] MEDS ORDERED: WARFARIN 2 MG TABLET PO-COUM ONE (18:00)
[2017-02-17 20:47] VITALS: BP 122/76
[2017-02-18] MEDS: VANCOMYCIN 50 MG/ML ORAL SUSP PO SCH ×4 (00:13→17:34)
[2017-02-18 03:11] VITALS: BP 115/86
[2017-02-18] MEDS: OXYcodone IR 5MG TABLET PO PRN ×2 (04:13→13:23)
[2017-02-18] MEDS: SODIUM CHLORIDE FLUSH 10ML SYR IVF SCH ×2 (04:13→13:00)
[2017-02-18 04:47] LABS: BLOOD UREA NITROGEN 15 mg/dL (7-18)
[2017-02-18] MEDS: LEVOTHYROXINE 100 MCG TABLET PO SCH (05:04)
[2017-02-18] MEDS: NYSTATIN 500,000 UNITS/5 ML UDC PO SCH ×3 (05:04→17:34)
[2017-02-18 05:30] LABS: DIFF TOTAL CELLS COUNTED 100 CELL DIFF
[2017-02-18 05:33] LABS: VERIFY COUNTS? YES
[2017-02-18 05:34] LABS: ANISOCYTOSIS 1+; LARGE PLATELETS 1+; POLYCHROMASIA 1+
[2017-02-18 07:50] VITALS: BP 143/95
[2017-02-18] MEDS: ALBUTEROL/IPRATROPIUM 2.5MG/0.5MG, 3 ML NPPB SCH ×3 (08:08→16:05)
[2017-02-18] MEDS: MEGESTROL ORAL.SUSP 40 MG/ML PO SCH (08:47)
[2017-02-18] MEDS: DIGOXIN 0.25 MG TABLET PO SCH (08:52)
[2017-02-18] MEDS: LACTOBACILLUS CHEW TABLET PO SCH (08:52)
[2017-02-18] MEDS: AMIODARONE 200 MG TABLET PO SCH (08:52)
[2017-02-18] MEDS: SODIUM CHLORIDE NASAL SPRAY 45ML BOTTLE NAS SCH (08:53)
[2017-02-18] MEDS: MIDODRINE 5 MG TABLET PO SCH ×2 (08:53→17:34)
[2017-02-18] MEDS: GABAPENTIN 300 MG CAPSULE PO SCH (08:53)
[2017-02-18 13:45] VITALS: BP 148/82
[2017-02-18] MEDS ORDERED: WARFARIN 2 MG TABLET PO-COUM ONE (18:00)
[2017-02-18] MEDS ORDERED: ACET325T14 PO (18:08)
[2017-02-18] MEDS ORDERED: ACID1TAB7 PO (18:08)
[2017-02-18] MEDS ORDERED: PRED20TA PO (18:09)
[2017-02-18] MEDS ORDERED: AMIO200T42 PO (18:09)
[2017-02-18] MEDS ORDERED: Miscellaneous XX (18:09)
[2017-02-18] MEDS ORDERED: MEGE400O2 PO (18:09)
[2017-02-18] MEDS ORDERED: ALPR0.254 PO (18:09)
[2017-02-18] MEDS ORDERED: MIDO5TAB PO (18:09)
[2017-02-18] MEDS ORDERED: OXYC5TAB3 PO (18:09)
[2017-02-18] MEDS ORDERED: LEVO100T PO (18:09)
[2017-02-18] MEDS ORDERED: IPRA3AMP NPPB ×2 (18:09)
[2017-02-18] MEDS ORDERED: DIGO250T PO (18:09)
[2017-02-18] MEDS ORDERED: VANC1VIA3 PO (18:09)
[2017-02-18] MEDS ORDERED: GABA300C10 PO (18:09)
== END 2017-02-18 19:28 | DRG 870 ==
LOC: ED 14:07 → EDIP 14:53 → CCU 15:59 → 3NE 02-03 14:25 → CCU 02-09 14:43 → 5SO 02-12 21:27 → 4EST 02-15 12:54
PROVIDERS: ADMIT Internal Medicine; ATTEND Internal Medicine
PROC: 0BH17EZ Insertion of Endotracheal Airway into Trachea, Via Natural or Artificial Opening (ICD-10-PCS; principal; 2017-01-22)
PROC: 5A1955Z Respiratory Ventilation, Greater than 96 Consecutive Hours (ICD-10-PCS; 2017-01-22)
PROC: B543ZZA Ultrasonography of Right Jugular Veins, Guidance (ICD-10-PCS; 2017-01-22)
PROC: 05HM33Z Insertion of Infusion Device into Right Internal Jugular Vein, Percutaneous Approach (ICD-10-PCS; 2017-01-22)
PROC: 0T9B70Z Drainage of Bladder with Drainage Device, Via Natural or Artificial Opening (ICD-10-PCS; 2017-01-22)
PROC: 02HV33Z Insertion of Infusion Device into Superior Vena Cava, Percutaneous Approach (ICD-10-PCS; 2017-01-26)
PROC: B548ZZA Ultrasonography of Superior Vena Cava, Guidance (ICD-10-PCS; 2017-01-26)
DX: A41.9 Sepsis, unspecified organism (principal); J96.21 Acute and chronic respiratory failure with hypoxia; J15.4 Pneumonia due to other streptococci; E43 Unspecified severe protein-calorie malnutrition; G92 Toxic encephalopathy; J15.1 Pneumonia due to Pseudomonas; R53.2 Functional quadriplegia; I50.33 Acute on chronic diastolic (congestive) heart failure; D68.69 Other thrombophilia; J44.0 Chronic obstructive pulmonary disease with (acute) lower respiratory infection; Z99.11 Dependence on respirator [ventilator] status; A04.7 Enterocolitis due to Clostridium difficile; B37.0 Candidal stomatitis; E87.0 Hyperosmolality and hypernatremia; J98.11 Atelectasis; Q21.1 Atrial septal defect; Z68.1 Body mass index [BMI] 19.9 or less, adult; G62.9 Polyneuropathy, unspecified; D64.9 Anemia, unspecified; D69.6 Thrombocytopenia, unspecified; E03.9 Hypothyroidism, unspecified; E55.9 Vitamin D deficiency, unspecified; E78.00 Pure hypercholesterolemia, unspecified; E78.5 Hyperlipidemia, unspecified; E87.6 Hypokalemia; F41.9 Anxiety disorder, unspecified; I08.1 Rheumatic disorders of both mitral and tricuspid valves; I11.0 Hypertensive heart disease with heart failure; I25.10 Atherosclerotic heart disease of native coronary artery without angina pectoris; I27.2 Other secondary pulmonary hypertension; I48.2 Chronic atrial fibrillation; I73.9 Peripheral vascular disease, unspecified; N40.0 Benign prostatic hyperplasia without lower urinary tract symptoms; R13.10 Dysphagia, unspecified; I95.9 Hypotension, unspecified; Z66 Do not resuscitate; Z79.01 Long term (current) use of anticoagulants; Z82.3 Family history of stroke; Z82.49 Family history of ischemic heart disease and other diseases of the circulatory system; Z87.891 Personal history of nicotine dependence; Z95.2 Presence of prosthetic heart valve; Z99.81 Dependence on supplemental oxygen; Z88.1 Allergy status to other antibiotic agents; Z88.8 Allergy status to other drugs, medicaments and biological substances
CPT/HCPCS: 31500; 36415; 36556; 36569; 36600; 71010; 74230; 76937; 77001; 78452; 80048; 80053; 80162; 80202; 81001; 82803; 82962; 83605; 83735; 83880; 84100; 84439; 84443; 84478; 84481; 84484; 85025; 85610; 85730; 87040; 87070; 87077; 87081; 87186; 87205; 87324; 93005; 93017; 93306; 94002; 94003; 94150; 94640; 96365; 96367; 96368; 96375; J1956; J2185; J2250; J2405; J2704; J2785; J3370; J7620; A9502; C1751; C9898; J0282; J0330; J0360; J1160; J1940; J2270; J2920; J2930; J7030; J7040; J7050; J7060; J7512; S0028